=== PATIENT | male | born 1960 | race African-American/Black ===

== ENCOUNTER 2018-11-22 01:45 | Inpatient (IN) | payer OTHER ==
[~2018-11-22] VITALS: Ht 188 cm; Wt 101.8 kg
[2018-11-22] VITALS (9 sets, daily range): BP systolic 95–158; BP diastolic 53–99
[~2018-11-22 01:45] MED LIST: NOHOMEMEDICATIONS
[2018-11-22 02:30] LABS: BASOPHILS 1.4 % (0.0-2.0); EOSINOPHILS 1.7 % (0.0-3.0); HEMATOCRIT 42.1 % (42.0-52.0); HEMOGLOBIN 14.3 gm/dL (14.0-18.0); MCHC 33.9 g/dL (28.0-37.0); MCV 97.4 fL (80.0-100.0); MONOCYTES 10.2 % (1.0-8.0); PLATELET COUNT 279 thou/uL (150-400); POLYS 54.7 % (36.0-66.0); RBC 4.33 mil/uL (4.50-6.00); RDW 12.6 % (10.5-14.5); WBC 5.5 thou/uL (4.0-11.0)
[2018-11-22 02:39] LABS: CALCIUM 9.1 mg/dL (8.5-10.1); CREATININE 1.1 mg/dL (0.7-1.3); POTASSIUM 3.6 mmol/L (3.5-5.1)
[2018-11-22 02:42] LABS: APTT 26.3 Seconds (24.5-32.8); PROTIME 9.8 Seconds (9.3-11.4)
[2018-11-22 02:44] LABS: ALBUMIN 3.3 g/dL (3.4-5.0); TOTAL BILIRUBIN 0.2 mg/dL (<0.1-1.0); TOTAL PROTEIN 7.6 g/dL (6.4-8.2)
[2018-11-22 05:47] LABS: HEMATOCRIT 43.1 % (42.0-52.0); HEMOGLOBIN 14.4 gm/dL (14.0-18.0)
--- NOTE | 2018-11-22 05:54 | NUR ---
ASSUME CARE FROM ED STAFF. PT/VITALS STABLE. DENIES ANY PAIN. UP AD AARON. SR ON MONITOR. NO BM NOTED. VOIDING ADEQUATELY. YELLOW URINE NOTED. ON PROTONIX DRIP LABS WNL. PLAN IS FOR GI TO SEE PT TODAY FOR POSSIBLE LACERATION AND GI BLEED. WILL CONTINUE TO MONITOR AND FOLLOW WITH POC
[2018-11-22] MEDS ORDERED: PANTOPRAZOLE SO40 M1 PO (10:02)
== END 2018-11-22 13:25 | disposition home or self-care (01) | DRG 379 ==
LOC: ER 01:45 → EROBS 03:11 → 2N 03:11 → ENTRNSPT 13:05 → EDTRNSPTSTS 13:09 → 2N 13:25
PROVIDERS: Internal Medicine Gastroenterology; Student in an Organized Health Care Education/Training Program; ADMIT Hospitalist
DX: K92.2 Gastrointestinal hemorrhage, unspecified (principal); K21.9 Gastro-esophageal reflux disease without esophagitis; Z79.899 Other long term (current) drug therapy
CPT/HCPCS: 10081